=== PATIENT | female | born 1945 | race Caucasian/White ===

== ENCOUNTER 2019-11-06 11:04 | Inpatient (IN) ==
[2019-11-06 11:43] LABS: Hematocrit 45.6 % (35.3-44.9); Hemoglobin 14.4 g/dL (11.5-15.4); Mean Corpuscular HGB Conc 31.6 g/dL (31.6-35.5); Mean Corpuscular Hemoglobin 28.6 pg (28.0-33.3); Mean Corpuscular Volume 90.5 fL (83.0-100.0); Mean Platelet Volume 9.1 fL (9.4-12.4); Platelet Count 304 K/mcL (140-400); Red Blood Count 5.04 M/mcL (3.82-4.97); Red Cell Distribution Width 13.9 % (11.5-14.5); White Blood Count 10.6 K/mcL (4.3-11.1)
[2019-11-06 12:05] LABS: BUN/Creatinine Ratio 21 (6-26); Blood Urea Nitrogen 18 mg/dL (8-23); Calcium 10.6 mg/dL (8.6-10.3); Carbon Dioxide 30 mEq/L (23-29); Chloride 99 mEq/L (98-107); Glucose 106 mg/dL (70-105); Osmolality,Calculated 294 (280-300); Potassium 4.2 mEq/L (3.5-5.1); Sodium 141 mEq/L (136-145); eGFR For African Americans > 60 (> 60); eGFR For Non-African Americans > 60 (> 60)
[2019-11-06] MEDS ORDERED: 0.9 % Sodium Chloride 1,000 ML IVC ONE (12:15)
[2019-11-06 13:08] LABS: Bilirubin,Urine Small (Negative); Blood,Urine Trace (Negative); Clarity,Urine Cloudy (Clear); Color,Urine Yellow (Yellow); Glucose,Urine (UA) Normal (Normal); Ketones,Urine 40 mg/dL (Negative); Leukocyte Esterase,Urine Trace (Negative); Nitrite,Urine Negative (Negative); Protein,Urine 30 mg/dL (Neg-Trace); Specific Gravity,Urine 1.029 (1.010-1.025); Urobilinogen,Urine Normal (Normal)
[2019-11-06 13:09] LABS: RBC,Urine 0-3 per hpf (0-3); Squamous Epithelial Cell,Urine Few per lpf (None-Few); WBC,Urine 0-3 per hpf (0-3)
[2019-11-06] MEDS ORDERED: 0.9 % Sodium Chloride 1,000 ML IVC SCH (13:45)
[2019-11-06] MEDS ORDERED: Ondansetron 4 MG/2 ML VIAL IVP PRN (13:45)
[2019-11-06] MEDS ORDERED: Pantoprazole 40 MG VIAL IVP SCH (18:00)
[2019-11-06] MEDS ORDERED: *HR* Heparin 5,000 UNIT/ML VIAL SQ SCH (18:00)
[2019-11-06] MEDS ORDERED: *HR* Succinylcholine 200 MG/10 ML VIAL IVP ONE (20:39)
[2019-11-06] MEDS ORDERED: Ondansetron 4 MG/2 ML VIAL ONE (20:39)
[2019-11-06] MEDS ORDERED: Lidocaine -MPF 2% 2 ML VIAL ONE (20:39)
[2019-11-06] MEDS ORDERED: *HR* Propofol 200 MG/20 ML VIAL IVP ONE (20:40)
[2019-11-06] MEDS ORDERED: *HR* FentaNYL (PF) 100 MCG/2 ML VIAL ONE (20:41)
[2019-11-06] MEDS ORDERED: *HR* Promethazine 25 MG/ML VIAL IVP ONE (21:31)
[2019-11-06] MEDS ORDERED: Famotidine 20 MG/2 ML VIAL ONE (22:05)
[2019-11-06] MEDS ORDERED: Acetaminophen IV 1,000 MG/100 ML INFUS..BTL ONE (22:05)
[2019-11-06] MEDS ORDERED: *HR* PHENYLEPHRINE 1,000 MCG/10 ML SYRINGE IVP ONE (23:01)
[2019-11-06] MEDS ORDERED: EPHEDrine 50 MG/ML VIAL ONE (23:14)
[2019-11-06] MEDS ORDERED: *HR* Rocuronium Bromide 50 MG/5 ML VIAL ONE (23:35)
[2019-11-07] MEDS ORDERED: Neostigmine Methylsulfate 3 MG/3 ML SYRINGE ONE
[2019-11-07] MEDS ORDERED: Ondansetron 4 MG/2 ML VIAL IVP ONE (00:22)
[2019-11-07] MEDS ORDERED: Morphine Sulfate 2 MG/ML SYRINGE IVP PRN (00:22)
[2019-11-07] MEDS ORDERED: *HR* Promethazine 25 MG/ML VIAL IVP ONE (00:40)
[2019-11-07] MEDS ORDERED: Ringers Solution, Lactated 1,000 ML ONE (00:42)
[2019-11-07] MEDS ORDERED: 0.9 % Sodium Chloride 1,000 ML IVC SCH (01:51)
[2019-11-07] MEDS ORDERED: Ondansetron 4 MG/2 ML VIAL IVP PRN (01:51)
[2019-11-07] MEDS: *HR* Heparin 5,000 UNIT/ML VIAL SQ SCH ×2 (06:56→17:43)
[2019-11-07] MEDS: Pantoprazole 40 MG VIAL IVP SCH (06:56)
[2019-11-07] MEDS: Acetaminophen IV 1,000 MG/100 ML INFUS..BTL IVPB SCH ×4 (06:57→23:53)
[2019-11-07] MEDS: ceFAZolin 1,000 MG in 0.9 % Sodium Chloride Mini Bag 100 ML IVPB SCH ×2 (07:51→15:19)
[2019-11-07] MEDS: Aspirin Enteric Coated 81 MG Tablet PO SCH (09:23)
[2019-11-07] MEDS: Ibuprofen 800 MG TABLET PO SCH ×3 (09:23→23:53)
[2019-11-07] MEDS: 0.9 % Sodium Chloride 1,000 ML IVC SCH (09:24)
[2019-11-08] MEDS: ceFAZolin 1,000 MG in 0.9 % Sodium Chloride Mini Bag 100 ML IVPB SCH (00:14)
[2019-11-08] MEDS: *HR* Heparin 5,000 UNIT/ML VIAL SQ SCH ×2 (06:00→18:14)
[2019-11-08] MEDS: Acetaminophen IV 1,000 MG/100 ML INFUS..BTL IVPB SCH ×4 (06:01→23:49)
[2019-11-08] MEDS: Pantoprazole 40 MG VIAL IVP SCH (06:30)
[2019-11-08] MEDS: Ibuprofen 800 MG TABLET PO SCH ×3 (07:56→23:49)
[2019-11-08] MEDS: Aspirin Enteric Coated 81 MG Tablet PO SCH (07:56)
[2019-11-08] MEDS: 0.9 % Sodium Chloride 1,000 ML IVC SCH (14:22)
[2019-11-09] MEDS: Acetaminophen IV 1,000 MG/100 ML INFUS..BTL IVPB SCH ×4 (06:01→23:05)
[2019-11-09] MEDS: *HR* Heparin 5,000 UNIT/ML VIAL SQ SCH ×2 (06:04→17:37)
[2019-11-09] MEDS: Pantoprazole 40 MG VIAL IVP SCH (06:05)
[2019-11-09] MEDS: Ibuprofen 800 MG TABLET PO SCH ×3 (07:52→23:05)
[2019-11-09] MEDS: Aspirin Enteric Coated 81 MG Tablet PO SCH (07:56)
[2019-11-09] MEDS: 0.9 % Sodium Chloride 1,000 ML IVC SCH (16:44)
[2019-11-10] MEDS: *HR* Heparin 5,000 UNIT/ML VIAL SQ SCH ×2 (05:47→17:50)
[2019-11-10] MEDS: Pantoprazole 40 MG VIAL IVP SCH (05:47)
[2019-11-10] MEDS: Acetaminophen IV 1,000 MG/100 ML INFUS..BTL IVPB SCH (05:48)
[2019-11-10] MEDS: Ibuprofen 800 MG TABLET PO SCH ×2 (08:21→16:14)
[2019-11-10] MEDS: Aspirin Enteric Coated 81 MG Tablet PO SCH (08:21)
[2019-11-11] MEDS: Ibuprofen 800 MG TABLET PO SCH ×2 (01:02→07:52)
[2019-11-11] MEDS: Pantoprazole 40 MG VIAL IVP SCH (06:25)
[2019-11-11] MEDS: *HR* Heparin 5,000 UNIT/ML VIAL SQ SCH (06:25)
[2019-11-11] MEDS: Aspirin Enteric Coated 81 MG Tablet PO SCH (08:00)
[2019-11-11 11:47] VITALS: BP 152/82
== END 2019-11-11 14:44 | disposition other institution (70) | DRG 337 ==
LOC: EMEROOARM 11:04 → 3ANU 11:04
PROVIDERS: ADMIT Internal Medicine; ATTEND Surgery